=== PATIENT | male | born 1960 | race Caucasian/White ===

== ENCOUNTER 2017-01-22 19:32 | Emergency (ER) | payer MEDICARE ==
[~2017-01-22] VITALS: Ht 170.2 cm; Wt 105.0 kg
[~2017-01-22 19:32] MED LIST: AMOX500C2 PO; BENZ0.5T3 PO; DIVA500T PO; FLUP5TAB PO; HYDR-4003 PO; OLAN5TAB PO
[2017-01-22 19:36] VITALS: BP 150/77; PULSE 85; RESP 16; O2SAT 95
--- NOTE | 2017-01-22 21:42 | ED.REPORT ---
HPI-Extremity Problem Lower Date of Service January 22, 2017 ED Provider: Spencer David MD Pt is a 56 y/o male presenting to the ED c/o posterior left upper leg pain onset yesterday. He thinks he may have injured his leg by stepping up into a highly elevated truck. Pt denies numbness, weakness. He denies any hx of DVT, long periods of immobilization. Nursing Notes Stated Complaint: LEFT LEG CRAMP Chief Complaint: General Complaint Nursing Notes Reviewed: Yes Allergies: Coded Allergies: Sulfa (Sulfonamide Antibiotics) (Verified Allergy, Unknown, 01/22/17) Scheduled Amoxicillin (Amoxicillin) 500 Mg Capsule 500 MG PO TID Benztropine Mes-Expunged Drug, Do Not Renew! (Benztropine Mes-Expunged Drug, Do Not Renew!) 0.5 Mg Tablet 0.5 MG PO BID Divalproex Sod-Expunged Drug, Do Not Renew! (Divalproex Sod-Expunged Drug, Do Not Renew!) 500 Mg Tablet.dr 500 MG PO DAILY Divalproex Sod-Expunged Drug, Do Not Renew! (Divalproex Sod-Expunged Drug, Do Not Renew!) 500 Mg Tablet.dr 1,000 MG PO HS Fluphenazine-Expunged Drug, Do Not Renew! (Prolixin-Expunged Drug, Do Not Renew! ) 5 Mg Tablet 5 MG PO BID OLANZapine-Expunged Drug, Do Not Renew! (ZyPREXA-Expunged Drug, Do Not Renew!) 5 Mg Tablet 15 MG PO BID Scheduled PRN Cyclobenzaprine (Cyclobenzaprine) 5 Mg Tablet 5 MG PO HS PRN PRN Spasm Hydrocodone-Acetaminophen 5-325 mg (Hydrocodone-Acetaminophen 5-325 mg) 1 Each Tablet 1 TABLET PO Q4H PRN PRN For Pain General Time Seen by MD: 21:00 Chief Complaint Other (LLE pain) Hx Obtained From: Patient Arrived By: Walk-in Onset Occurred: Yesterday Symptom Duration: Since onset Location: : Thigh left Quality: Painful Severity: Current: Moderate Severity: Maximum: Moderate Recent Healthcare: No recent doctor visit, No recent hospitalization Similar Sx Previous: No Past Medical History Past Medical History Substance abuse Psychiatric treatment Violent behavior HTN Past Surgical History None reported Smoking History Current Every Day Smoker Ambulatory Status Independent Review of Systems Constitutional: Denies: Chills, Fever Musculoskeletal: Reports: Extremity pain, Denies: Extremity swelling Skin: Denies Itching, Denies Rash Complete sys rev & neg: except as marked. Respiratory: Denies: Non-productive cough, Shortness of breath Cardiovascular: Denies: Chest pain, Dyspnea on exertion Physical Exam Initial Vital Signs Vital Signs (First) Date Time Temp Pulse Resp B/P Pulse Ox O2 Delivery O2 Flow Rate FiO2 01/22/17 19:36 36.4 85 16 150/77 95 Room Air Initial VS: Reviewed, Vital signs normal Head / Eyes: Atraumatic, Normocephalic, PERRL ENT: Mucous membranes moist, Conjunctiva normal, No scleral icterus Neck: Supple, Full range of motion Respiratory: Breath sounds normal, Clear to auscultation, No respiratory distress Cardiovascular: Regular rate & rhythm, Heart sounds normal, Intact distal pulses Abdomen / GI: Soft, Non-tender Upper Extremities: Vascular intact, Neuro intact, No swelling, No tenderness Skin: Warm, Dry, No cyanosis Neurologic: Alert, Oriented, Nonfocal Psychiatric: Mood/affect normal, Behavior normal, Normal thought content Lower Extremity / Pelvis / MS: Atraumatic, Inspection NL, Full range of motion , No swelling, No erythema, No deformity, Neurologic intact, Vascular intact, No compartment syndrome, No edema, Gait NL, Pelvis stable, Pelvis non-tender Mild tenderness about left posterior upper leg with no evidence of cellulitis, abscess, or bony injury Ankle / Foot: Atraumatic, Full range of motion, No swelling, No erythema, Non- tender, No deformity, Neurologic intact, Vascular intact, No compartment syndrome General/Constitutional: Awake, Alert, No acute distress, Well appearing, Cooperative, Not toxic appearing Re-Eval/Medical Decision Med Decision/Clinical Course Pt is a 56 y/o male presenting to the ED c/o posterior left upper leg pain onset yesterday. He thinks he may have injured his leg by stepping up into a highly elevated truck. Pt denies numbness, weakness. He denies any hx of DVT, long periods of immobilization. Here in the emergency department the patient is afebrile with stable vital signs and examination as above. Patient is neurovascularly intact in the affected extremity. He has tenderness to firm palpation about the posterior thigh. There is no evidence of DVT on examination and his history is not suggestive thereof. The overall presentation SEEMS consistent with muscle strain. Advised to elevate leg, apply ice packs, stretch. I gave him a limited supply of Flexeril and advised him to follow up with his primary care physician as needed. Prior to discharge follow-up and return precautions were reviewed in detail with the patient who verbalized understanding and agreement with the plan. The patient was discharged in stable condition. Re-Evaluation/Progress : Time of Eval: 22:36 Re-Evaluation/Progress Note: Pt rechecked. Informed pt of plan for treatment. Pt understands and agrees with plan for treatment. F/U instructions and RTER warnings given. All questions addressed. Counseled Regarding: Diagnosis, Need for follow-up, When/why to return to ED Discharge & Departure Impression: Primary Impression: Hamstring sprain Encounter type: initial encounter Laterality: left Qualified Code: S73.192A - Other sprain of left hip, initial encounter Additional Impression: Leg pain, posterior Laterality: right Qualified Code: M79.604 - Pain in right leg Disposition: Home Discharge Condition All VS Reviewed: Yes Condition: Stable Additional Instructions: I suspect you sprained your left hamstring muscle. There is no evidence of fracture or infection on your exam. Take Flexeril as directed for pain. This medication causes drowsiness. Do not drink alcohol, take any other sedating medications, opiates, other muscle relaxants, or drive after taking Flexeril. Return to the emergency department if you experience swelling, numbness, or weakness of your leg, or for other concerning symptoms. Referrals: BING GOULD DO (PCP) Sophy Attestation Portions of this note were transcribed by Morales Correa. I, Dr. David personally performed the history, physical exam and medical decision-making; I reviewed and confirmed the accuracy of the information in the transcribed note. Signed by Sophy Stratton, 01/22/17 5 copies to: BING GOULD Beck O MD January 22, 2017 21:42 MORALES CORREA January 22, 2017 22:35
[2017-01-22 22:00] VITALS: BP 119/61; PULSE 78; RESP 20; O2SAT 94
[2017-01-22] MEDS ORDERED: CYCL5TAB PO (22:36)
== END 2017-01-22 22:47 | disposition home or self-care (01) ==
LOC: SED 19:32
DX: S73.192A Other sprain of left hip, initial encounter (principal); X50.9XXA Other and unspecified overexertion or strenuous movements or postures, initial encounter; Y93.89 Activity, other specified; Y92.810 Car as the place of occurrence of the external cause; Y99.8 Other external cause status; I10 Essential (primary) hypertension; F17.200 Nicotine dependence, unspecified, uncomplicated; Z88.2 Allergy status to sulfonamides

== ENCOUNTER → 2017-04-06 | Day surgery (SDC) | payer MEDICARE ==
[~2017-04-06] VITALS: Ht 170.2 cm; Wt 107.0 kg
[~2017-04-06] MED LIST changes: +0.9% Sodium Chloride 1,000 ML IV SCH; -AMOX500C2 PO; +CYCL5TAB PO; -DIVA500T PO; +DIVA500T6 PO; +FLUP10TA PO; -FLUP5TAB PO; -HYDR-4003 PO; +KLO5T PO; +LEVO330T PO; +OLAN15TA17 PO; -OLAN5TAB PO; +PANT40TA2 PO; +Sodium Chloride LOK Flush 10 mL Syringe IV PRN; +[UNRECOGNIZED DRUG - OTHER] PO; +fentaNYL-PF 50 mCg/mL 2 mL Inj IVPUSH PRN
[2017-04-06 07:41] VITALS: BP 124/79; PULSE 76; RESP 20; O2SAT 96
[2017-04-06 08:28] VITALS: BP 128/82; PULSE 69; RESP 14; O2SAT 92
[2017-04-06 08:36] VITALS: BP 136/80; PULSE 66; RESP 15; O2SAT 93
[2017-04-06 08:49] VITALS: BP 142/86; PULSE 70; RESP 18; O2SAT 92
--- NOTE | 2017-04-06 14:13 | ENDO ---
[address] [address] ENDOSCOPY PROCEDURE PATIENT: JU LITTLE : 1960 MR#: [id number] ADMIT: 04/06/2017 JOB ID: [id number] DATE OF SERVICE: 04/06/2017 TYPE OF OPERATION: Esophagogastroduodenoscopy, biopsy, colonoscopy with biopsy. PREOPERATIVE DIAGNOSIS(ES): Gastroesophageal reflux disease, bloating, and colorectal cancer screening. POSTOPERATIVE DIAGNOSIS(ES): 1. Mild nonerosive gastritis. 2. A 3 mm cecal polyp, removed by cold biopsy forceps. ANESTHESIA: Fentanyl 75 mcg, Versed 4 mg IV administered. COMPLICATION: None. BLOOD LOSS: Minimal. DESCRIPTION OF PROCEDURE: After risks and benefits were explained to the patient, informed was obtained. After anesthesia administered, upper endoscope was inserted in the mouth, intubating to the esophagus, stomach, second portion of duodenum. Mucosa carefully examined. After the procedure done, scope withdrawn, procedure terminated. Colonoscope was then inserted from the rectum to the cecum. Mucosa carefully examined. Prep of the patient was fair. After procedure done, scope withdrawn, procedure terminated. FINDINGS: Upon inspection of the esophagus, esophagus was normal without masses, ulcers, or lesions. Z-line located at 40 cm from incisors. Upon entering stomach, the stomach also appeared normal without masses, ulcers, or lesions, except there was mild nonerosive gastritis. Retroflexion was normal. Duodenal bulb, first and second portion were normal. Biopsies taken at duodenum, antrum, body, and distal esophagus. Upon inspection of the anus, no masses, hemorrhoids, ulcers, or fissures that were seen. Throughout the entire examination, there was a 3 mm cecal polyp, removed by cold biopsy forceps. No other polyps or masses were seen. Retroflexion was normal. IMPRESSIONS: 1. A 3 mm cecal polyp, removed by cold biopsy forceps. 2. Mild nonerosive gastritis. RECOMMENDATIONS: Await pathology results. If tubular adenoma, then repeat colonoscopy in five years. Follow up in GI Clinic as needed.
--- NOTE | 2017-04-09 17:33 | PATH ---
SURGICAL PATHOLOGY Attending Physician:Syed Roger MD CASE STATUS: Signed Out PATIENT NAME: JU LITTLE PID: [id number] : 1960 DATE COLLECTED:04/06/2017 16:28 SPECIMEN: 1: Duodenum, Biopsy 2: Stomach, Antrum, Biopsy 3: Gastric, Biopsy 4: Esophagus, Biopsy 5: Colon, Polyp CLINICAL HISTORY: 1). DUODENUM BIOPSY 2). ANTRUM BIOPSY 3). GASTRIC BODY BIOPSY (RULE OUT H.PYLORI) 4). DISTAL ESOPHAGUS BIOPSY 5). CECUM POLYP FINAL DIAGNOSIS: 1.DUODENUM, BIOPSY: DUODENAL MUCOSA WITH NO DIAGNOSTIC ABNORMALITY. Negative for active inflammation, features of sprue, dysplasia, and malignancy. 2.GASTRIC ANTRUM, BIOPSY: GASTRIC ANTRAL MUCOSA WITH NO DIAGNOSTIC ABNORMALITY. Negative for Helicobacter organisms. Negative for intestinal metaplasia. Negative for dysplasia and malignancy. 3.GASTRIC BODY, BIOPSY: GASTRIC BODY MUCOSA WITH NO DIAGNOSTIC ABNORMALITY. Negative for Helicobacter organisms. Negative for intestinal metaplasia. Negative for dysplasia and malignancy. 4.ESOPHAGUS, BIOPSY: SQUAMOUS MUCOSA WITH NO DIAGNOSTIC ABNORMALITY. Intraepithelial eosinophils are not increased. Negative for dysplasia and malignancy. 5.COLON POLYP, BIOPSY: TUBULAR ADENOMA. ICD10 R10.13 D12.6 GROSS DESCRIPTION: The specimen is received in five formalin filled containers labeled with the patient's name. 1). The specimen is labeled "duodenum" and consists of 2 portions of tissue which aggregate to 0.3 x 0.2 x 0.2 CM. The specimen is entirely submitted in cassette 1A. 2). The specimen is labeled "antrum" and consists of a 0.3 x 0.3 x 0.3 CM portion of tissue which is entirely submitted in cassette 2A. 3). The specimen is labeled "gastric body" and consists of 2 portions of tissue which aggregate to 0.3 x 0.3 x 0.2 CM. The specimen is entirely submitted in cassette 3A. 4). The specimen is labeled "distal esophagus" and consists of an extremely tiny less than 0.1 CM portion of tissue which is entirely submitted in cassette 4A. 5). The specimen is labeled "cecal polyp" and consists of 2 portions of tissue which aggregate to 0.3 x 0.2 x 0.2 CM. The specimen is entirely submitted in cassette 5A. 04/06/2017DC MICRO DESCRIPTION: See diagnosis. ICD-9 CODES: CPT CODES: 1: 23085 2: 28462 3: 76870 4: 77550 5: 59058 Electronically Signed Out Dean Hardin MD, Ph.D. [facility] [address], [place] [address] Technical component performed at [facility], [facility] [address], [place], [address]
== END | disposition home or self-care (01) ==
LOC: END 00:08
PROVIDERS: ATTEND Internal Medicine Gastroenterology
DX: Z12.11 Encounter for screening for malignant neoplasm of colon (principal); D12.0 Benign neoplasm of cecum; K29.70 Gastritis, unspecified, without bleeding; K21.9 Gastro-esophageal reflux disease without esophagitis; F20.9 Schizophrenia, unspecified; F17.200 Nicotine dependence, unspecified, uncomplicated; R14.0 Abdominal distension (gaseous)
CPT/HCPCS: 43239; 45380; 99153; G0500; J2250; J3010; J7030